=== PATIENT | male | born 2000 | race Caucasian/White ===

== ENCOUNTER 2021-05-07 00:53 | Emergency (ER) | payer OTHER ==
[~2021-05-07] VITALS: Ht 177.8 cm; Wt 65.9 kg
[2021-05-07 01:34] VITALS: TEMP 102.7
[2021-05-07 02:59] LABS: STREP SCREEN NEGATIVE
[2021-05-07 04:40] VITALS: BP 120/84; PULSE 98
== END 2021-05-07 04:44 | disposition home or self-care (01) ==
LOC: COL.ER 00:53
PROVIDERS: Personal Emergency Response Attendant
DX: B34.9 Viral infection, unspecified (principal); E86.0 Dehydration; Z20.822 Contact with and (suspected) exposure to COVID-19
CPT/HCPCS: J7030